=== PATIENT | female | born 1980 | race Caucasian/White ===

== ENCOUNTER 2017-05-21 21:49 | Emergency (ER) | payer MEDICARE ==
--- NOTE | 2017-05-21 22:09 | Emergency Department Record ---
History of Present Illness - General Chief complaint: Lower Extremity Pain Stated complaint: INJURY TO RT LEG Time Seen by Provider: 05/21/17 22:04 Source: Patient Mode of Arrival: Wheelchair Limitations: No limitations - History of Present Illness Initial comments: 36 yo female presents to ED with a CC of right foot pain following a fall while at home. 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 Patient reports previous fractures to the foot as well resulting in fracture boot placement. MD Complaint: Extremity pain Onset/Timin -: Hour(s) Location: Right, Foot History of Same: Yes -: Yes Arthralgia Quality: Aching Consistency: Constant Improves with: Nothing Worsens with: Walking Associated Symptoms: Denies other symptoms - Related Data Home Medications Medication Instructions Recorded Confirmed Last Taken Furosemide [Lasix] 40 mg PO DAILY 05/21/17 05/21/17 05/21/17 Potassium Chloride 8 meq PO DAILY 05/21/17 05/21/17 05/21/17 Topiramate [Topamax] 100 mg PO BID 05/21/17 05/21/17 05/21/17 Valacyclovir HCl [Valacyclovir] 500 mg PO BID 05/21/17 05/21/17 05/21/17 Allergies Allergy/AdvReac Type Severity Reaction Status Date / Time bee pollen Allergy ANAPHYLAXIS Verified 05/21/17 22:12 Cephalosporins Allergy ANAPHYLAXIS Verified 05/21/17 22:12 Penicillins Allergy ANAPHYLAXIS Verified 05/21/17 22:12 prochlorperazine Allergy SWELLING Verified 05/21/17 22:12 [From Compazine] OF THE TONGUE Sulfa (Sulfonamide Allergy ANAPHYLAXIS Verified 05/21/17 22:12 Antibiotics) Review of Systems Constitutional: Denies: Chills, Fever, Malaise, Night sweats Eyes: Denies: Eye discharge, Eye pain ENT: Denies: Congestion, Ear pain, Epistaxis Respiratory: Denies: Cough, Dyspnea Cardiovascular: Denies: Chest pain, Dyspnea on exertion Endocrine: Denies: Fatigue, Heat or cold intolerance Gastrointestinal: Denies: Abdominal pain, Nausea, Vomiting Genitourinary: Denies: Incontinence, Retention Musculoskeletal: Reports: Arthralgia. Denies: Back pain, Gout Skin: Reports: Bruising. Denies: Change in color Neurological: Denies: Abnormal gait, Confusion, Headache, Seizure Psychiatric: Denies: Anxiety Hematological/Lymphatic: Denies: Anemia, Blood Clots Physical Exam - General General Appearance: Alert, Oriented x3, Cooperative, Mild distress Limitations: No limitations - Head Head exam: Atraumatic, Normocephalic, Normal inspection Head exam detail: negative: Abrasion, Contusion, Mitchell's sign, General tenderness, Hematoma, Laceration - Eye Eye exam: Normal appearance. negative: Conjunctival injection, Periorbital swelling, Periorbital tenderness, Scleral icterus - ENT Ear exam: negative: Auricular hematoma, Auricular trauma Nasal Exam: negative: Active bleeding, Discharge, Dried blood, Foreign body Mouth exam: negative: Drooling, Laceration, Muffled voice, Tongue elevation - Neck Neck exam: Normal inspection. negative: Meningismus, Tenderness - Respiratory Respiratory exam: Normal lung sounds bilaterally. negative: Rales, Respiratory distress, Rhonchi, Stridor - Cardiovascular Cardiovascular Exam: Regular rate, Normal rhythm, Normal heart sounds Peripheral Pulses: 3+: Dorsalis Pedis (R) - GI/Abdominal GI/Abdominal exam: Soft. negative: Rebound, Rigid, Tenderness - Rectal Rectal exam: Deferred - exam: Deferred - Extremities Extremities exam: Tenderness, Other (TTP over marisol dorsum of the right foot, toe extension and flexion are intact, mild STS and ecchymosis is present to the foot. AKA right lower extremity.). negative: Calf tenderness, Pedal edema - Back Back exam: Denies: CVA tenderness (R), CVA tenderness (L) - Neurological Neurological exam: Alert, Oriented X3 - Psychiatric Psychiatric exam: Normal affect, Normal mood - Skin Skin exam: Normal color. 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 Patient was updated on her radiology results, and appears stable for discharge with fracture boot for foot stability over the next several days. Patient reports that she has both crutches and a wheelchair at home to assist with mobility as well. Disposition Disposition: Discharge Clinical Impression: Contusion, foot Qualifiers: Encounter type: initial encounter Laterality: right Qualified Code(s): S90.31XA - Contusion of right foot, initial encounter Disposition: Home, Self-Care Condition: (2) Stable Instructions: Foot Contusion (ED) Additional Instructions: Return to ED if your symptoms worsen or if you have any concerns. Ice, Ibuprofen as needed for pain symptoms. Follow-up with your family doctor in 3-5 days as directed. Forms: Patient Portal Access Time of Disposition: 22:35 Quality - Quality Measures Quality Measures: N/A - Blood Pressure Screening Blood Pressure Classification: Pre-Hypertensive BP Reading Systolic Measurement: 127 Diastolic Measurement: 80 Screening for High Blood Pressure: < Pre-Hypertensive BP, F/U Documented > [ [id number]] Pre-Hypertensive Follow-up Interventions: Referral to alternative/primary care provider.
[2017-05-21] MEDS: HYDROCODONE/APAP 5/325MG TABLET PO ONE (22:10)
--- NOTE | 2017-05-24 14:35 | RADIOLOGY REPORT ---
EXAM: RIGHT FOOT HISTORY: PATIENT FELL TODAY WITH RIGHT FOOT PAIN AND SWELLING. TECHNIQUE: Three views of the right foot were obtained. Comparison: None. Encounter: Initial. FINDINGS: Minor degenerative change at the first MTP joint. No definite acute fracture or dislocation of the right foot identified. IMPRESSION: MINOR DEGENERATIVE CHANGE AT THE FIRST MTP JOINT. NO DEFINITE FRACTURE OF THE RIGHT FOOT IDENTIFIED. JOB NUMBER: [id number] MTDD
== END 2017-05-21 23:13 | disposition home or self-care (01) ==
LOC: ER 21:49
DX: S90.31XA Contusion of right foot, initial encounter (principal); W01.0XXA Fall on same level from slipping, tripping and stumbling without subsequent striking against object, initial encounter; Y93.G3 Activity, cooking and baking; Y92.000 Kitchen of unspecified non-institutional (private) residence as the place of occurrence of the external cause
CPT/HCPCS: 99283